=== PATIENT | male | born 1965 | race Hispanic/Latino ===

== ENCOUNTER 2017-08-05 11:51 | Emergency (ER) | payer MEDICARE, OTHER ==
[2017-08-05 12:46] LABS: Bilirubin,Urine NEG (Negative); Blood,Urine NEG (Negative); Color,Urine Yellow (Yellow); Mucus,Urine FEW /HPF; Urobilinogen,Urine < 2.0 mg/dL (<2.0)
[2017-08-05 12:56] LABS: Amphetamine Screen,Urine PRESUMPTIVE NEGATIVE; Benzodiazepines Screen,Urine PRESUMPTIVE NEGATIVE; Cannabinoid Screen,Urine PRESUMPTIVE NEGATIVE; Cocaine Screen,Urine PRESUMPTIVE NEGATIVE; Methadone Screen,Urine PRESUMPTIVE NEGATIVE; Opiate Screen,Urine PRESUMPTIVE NEGATIVE
[2017-08-05 13:48] LABS: Basophils % (Auto) 0.8 % (0.0-1.8); Eosinophils % (Auto) 0.6 % (0.0-4.3); Hemoglobin 14.1 gm/dl (11.8-15.2); Lymphocytes # (Auto) 1.1 K/mm3 (1.2-5.4); Mean Corpuscular HGB Conc 34 % (32-34); Mean Corpuscular Hemoglobin 29 pg (28-32); Mean Corpuscular Volume 87 fl (84-94); Monocytes # (Auto) 0.4 K/mm3 (0.0-0.8); Monocytes % (Auto) 7.3 % (0.0-7.3); Platelet Count 161 K/mm3 (140-440); Red Blood Count 4.86 M/mm3 (3.65-5.03); Red Cell Distribution Width 15.3 % (13.2-15.2)
--- NOTE | 2017-08-05 14:03 | Emergency Department Report ---
HPI - General Chief Complaint: Psych Time Seen by Provider: 08/05/17 12:32 - HPI HPI: The patient is a 52-year-old male who presents for evaluation of mental health. The patient reports experiencing constant and severe sadness and hopelessness for the past week, and command auditory hallucinations instructed him to harm himself. He shares that he has a long-standing history of depression. The patient denies fever, headache, unexplained weight loss or weight gain, heat or cold intolerance, skin, hair, or nail changes, neuro deficits, homicidal ideations, or visual hallucinations. ED Past Medical Hx - Past Medical History Hx Hypertension: Yes Hx Diabetes: Yes Hx Psychiatric Treatment: Yes - Social History Smoking Status: Light Tobacco Smoker - Medications Home Medications: Home Medications Medication Instructions Recorded Confirmed Last Taken Type Atenolol [Tenormin] 25 mg PO DAILY 08/05/17 08/05/17 Unknown History Divalproex ER [DepaKOTE ER] 500 mg PO QDAY 08/05/17 08/05/17 Unknown History Levothyroxine [Synthroid] 75 mcg PO QAM 08/05/17 08/05/17 Unknown History Omeprazole 20 mg PO QDAY 08/05/17 08/05/17 Unknown History QUEtiapine [SEROquel] 200 mg PO BID 08/05/17 08/05/17 Unknown History Ropinirole HCl [Requip] 0.25 mg PO QDAY 08/05/17 08/05/17 Unknown History metFORMIN [Glucophage] 1,000 mg PO BID 08/05/17 08/05/17 Unknown History ED Review of Systems ROS: Stated complaint: MH/1013 Other details as noted in HPI Constitutional: denies: fever ENT: denies: throat or neck pain Respiratory: denies: cough, shortness of breath Cardiovascular: denies: chest pain Endocrine: denies unexplained weight loss or gain Gastrointestinal: denies: abdominal pain, nausea Genitourinary: denies: dysuria Musculoskeletal: denies: leg swelling Skin: denies: rash Neurological: denies: headache Hematological/Lymphatic: denies: easy bleeding or easy bruising Psych: reports sadness or hopelessness Physical Exam - Physical Exam Vital Signs: Vital Signs 08/05/17 08/05/17 12:55 12:58 Temperature 98.3 F Pulse Rate 101 H Respiratory 16 16 Rate Blood Pressure 164/91 [Left] O2 Sat by Pulse 100 100 Oximetry Physical Exam: General: well-nourished, well-developed, no acute distress Head: Normocephalic, atraumatic Eyes: normal sclera ENT: Mucous membranes are pink and moist Neck: trachea midline, neck supple, No neck stiffness, no cervical adenopathy Respiratory: Breath sounds equal bilaterally, no wheezing, rales, or rhonchi Cardio: S1 and S2 present, no murmurs, rubs, gallops, capillary refill is brisk Abdomen: Normoactive bowel sounds, soft abdomen, no rigidity, no guarding or rebound tenderness Musc: No pitting edema Skin: No rash Neuro: no facial drooping, normal speech Psych: Flat affect, depressed mood, poor insight, positive suicidal ideation ED Course Vital Signs 08/05/17 08/05/17 12:55 12:58 Temperature 98.3 F Pulse Rate 101 H Respiratory 16 16 Rate Blood Pressure 164/91 [Left] O2 Sat by Pulse 100 100 Oximetry ED Medical Decision Making - Lab Data Result diagrams: 08/05/17 13:30 08/05/17 13:30 - Medical Decision Making The patient was seen and examined by myself. The patient is placed on a environmental monitoring technician and continuous pulse ox. On initial evaluation, the patient was found to be in no distress. Labs are obtained. Lab results are grossly unremarkable. The patient is medically clear. Mental health is consulted. Mental health evaluates the patient and agrees that the patient is at risk of harm to self. A 1013 is completed. The patient will be admitted to a psychiatric facility once bed placement is obtained. Critical care attestation.: If time is entered above; I have spent that time in minutes in the direct care of this critically ill patient, excluding procedure time. ED Disposition Clinical Impression: Suicidal ideation, Acute psychosis Disposition: [id number]/TX-[id number] PSY HOSP/PSY UNIT Is pt being admited?: No Does the pt Need Aspirin: No Condition: Stable Time of Disposition: 13:49
[2017-08-05 15:11] LABS: BUN/Creatinine Ratio 16; Blood Urea Nitrogen 18 mg/dL (9-20); Calcium 9.2 mg/dL (8.4-10.2); Hemolysis Index 3
[2017-08-05] MEDS ORDERED: TYLENOL PO PRN (18:18)
[2017-08-05] MEDS ORDERED: ALUM-MAG HYDROX-SIMETH 200-200-20MG/5ML PO PRN (18:18)
[2017-08-05] MEDS ORDERED: MILK OF MAGNESIA PO PRN (18:18)
[2017-08-05] MEDS ORDERED: GLUCOPHAGE PO ONE (22:40)
[2017-08-06] MEDS ORDERED: SYNTHROID PO SCH (06:00)
[2017-08-06] MEDS ORDERED: TENORMIN ONE (07:35)
[2017-08-06] MEDS: GLUCOPHAGE PO SCH ×2 (07:45→16:42)
[2017-08-06] MEDS ORDERED: TENORMIN PO SCH (10:00)
[2017-08-06 10:24] LABS: Alanine Aminotransferase 8 units/L (7-56); Lipase 39 units/L (13-60)
--- NOTE | 2017-08-06 11:15 | Consultation ---
History of Present Illness - Reason for Consult Consult date: 08/06/17 Reason for consult: Mental Health Evaluation Requesting physician: XAVIER CRUZ - Chief Complaint Chief complaint: "The voices" - History of Present Psychiatric Illness 52-year-old male who presents for evaluation of mental health because he endorses SI's and AH's. Today the patient is calm, but disorganized during the assessment. He stated that the voices were loud yesterday telling him to kill himself. He stated that he was trying to ignore them, but they were "overwhelming." He stated that the voices are still active. He stated that he has not been on his mediation (Seroquel and Depakote) for weeks. He stated that he does not have a psychiatrist for outpatient psy services. He denies HI's and VH's. He admitted to erratic sleep, but denies a poor appetite. He denies recreational drug use and alcohol consumption (etoh). Medications and Allergies Allergies Allergy/AdvReac Type Severity Reaction Status Date / Time codeine Allergy Unknown Verified 08/05/17 12:29 lorazepam [From Ativan] Allergy Unknown Verified 08/05/17 12:29 Home Medications Medication Instructions Recorded Confirmed Last Taken Type Atenolol [Tenormin] 25 mg PO DAILY 08/05/17 08/05/17 Unknown History Divalproex ER [DepaKOTE ER] 500 mg PO QDAY 08/05/17 08/05/17 Unknown History Levothyroxine [Synthroid] 75 mcg PO QAM 08/05/17 08/05/17 Unknown History Omeprazole 20 mg PO QDAY 08/05/17 08/05/17 Unknown History QUEtiapine [SEROquel] 200 mg PO BID 08/05/17 08/05/17 Unknown History Ropinirole HCl [Requip] 0.25 mg PO QDAY 08/05/17 08/05/17 Unknown History metFORMIN [Glucophage] 1,000 mg PO BID 08/05/17 08/05/17 Unknown History Active Meds: Active Medications Acetaminophen (Tylenol) 650 mg PO Q4HR PRN PRN Reason: Pain MILD(1-3)/Fever >100.5/PRIETO Al Hydrox/Mg Hydrox/Simethicone (Alum-Mag Hydrox-Simeth [id number]/5ml) 30 ml PO Q4HR PRN PRN Reason: Indigestion Atenolol (Tenormin) 25 mg PO DAILY [facility] Stop: 08/10/17 09:59 Last Admin: 08/06/17 09:53 Dose: 25 mg Levothyroxine Sodium (Synthroid) 75 mcg PO DAILY@0600 KRISTEL Stop: 08/10/17 05:59 Last Admin: 08/06/17 06:27 Dose: 75 mcg Magnesium Hydroxide (Milk Of Magnesia) 30 ml PO Q12HR PRN PRN Reason: Constipation Metformin HCl (Glucophage) 1,000 mg PO BIDDIAB KRISTEL Stop: 08/10/17 07:59 Last Admin: 08/06/17 07:45 Dose: 1,000 mg Past psychiatric history - Past Medical History Past Medical History: diabetes, hypertension Past Surgical History: No surgical history - past Psychiatric treatment and history psychiatric treatment history: Multiple inpatient psy settings. Denies a fam psy hx. - Social History Social history: other (Reside at a intermediate) Mental Status Exam - Vital signs Last Vital Signs Temp 98.3 F 08/06/17 01:33 Pulse 97 H 08/06/17 01:33 Resp 18 08/06/17 01:33 BP 133/68 08/06/17 01:33 Pulse Ox 98 08/06/17 01:33 - Exam Narrative exam: MSE: Appearance: calm, cooperative Behavior: regular eye contact Speech: regular rate and tone Mood: "okay" Affect: congruent to mood Thought Process: disorganized Thought Content: denies HI's and VH's, intermittent AH's, cannot confirm or deny SI's Motor Activity: sitting up in bed Cognition: A/O x 3 Insight: poor Judgment: variable Results Result Diagrams: 08/05/17 13:30 08/05/17 13:30 Abnormal lab results 08/05/17 08/05/17 08/05/17 Range/Units 13:30 13:30 13:30 RDW (13.2-15.2) % Lymph # (1.2-5.4) K/mm3 Seg Neutrophils % (40.0-70.0) % Glucose 217 H (75-100) mg/dL Salicylates < 0.3 L (2.8-20.0) mg/dL Acetaminophen < 5.0 L (10.0-30.0) ug/mL Valproic Acid (50-100) ug/mL 08/05/17 08/06/17 Range/Units 13:30 09:33 RDW 15.3 H (13.2-15.2) % Lymph # 1.1 L (1.2-5.4) K/mm3 Seg Neutrophils % 73.3 H (40.0-70.0) % Glucose (75-100) mg/dL Salicylates (2.8-20.0) mg/dL Acetaminophen (10.0-30.0) ug/mL Valproic Acid 3.7 L (50-100) ug/mL All other labs normal. Assessment and Plan Assessment and plan: Impression: Unspecified Psychosis/Mood DO. Today the patient is calm, but disorganized during the assessment. The patient cannot confirm or deny SI's. UDS negative. DDx: R/O Bipolar DO, Schizoaffective DO, R/O MDD with psychosis Recommendation/Plan: Continue 1013 with placement to inpatient psy services. Start Seroquel 200 mg PO HS for mood/psychosis and Depakote 500 mg PO BID for mood. Discussed the possible metabolic side effects of Seroquel with the patient.
[2017-08-06 14:41] VITALS: BP 123/77
== END 2017-08-07 03:30 ==
LOC: EEVIPCON 11:51 → ED 11:51
DX: F23 Brief psychotic disorder (principal); F32.9 Major depressive disorder, single episode, unspecified; I10 Essential (primary) hypertension; E11.9 Type 2 diabetes mellitus without complications; F17.200 Nicotine dependence, unspecified, uncomplicated; Z88.5 Allergy status to narcotic agent; Z88.8 Allergy status to other drugs, medicaments and biological substances; Z79.899 Other long term (current) drug therapy
CPT/HCPCS: 36415; 80048; 80164; 80307; 81001; 82150; 82962; 83690; 84075; 84450; 84460; 85025; 99285; G0480; 80320

== ENCOUNTER 2017-11-08 13:07 | Emergency (ER) | payer MEDICARE ==
--- NOTE | 2017-11-08 14:38 | Emergency Department Report ---
ED Fall HPI - General Chief Complaint: Extremity Injury, Upper Stated Complaint: FALL Time Seen by Provider: 11/08/17 13:45 Source: patient Mode of arrival: Ambulatory - History of Present Illness Complaint: fall -: days(s) (5 days) Fall From: standing When Fall Occurred: # days [employer] (5) Fall Witnessed: no Loss of Consciousness: none Prolonged Down Time?: no Symptoms Prior to Fall: none Location: chest Location - Extremities: Right: Shoulder Severity scale (0 -10): 5 Quality: sharp Associated Symptoms: denies - Related Data Home Medications Medication Instructions Recorded Confirmed Last Taken Atenolol [Tenormin] 25 mg PO DAILY 08/05/17 08/05/17 Unknown Divalproex ER [DepaKOTE ER] 500 mg PO QDAY 08/05/17 08/05/17 Unknown Levothyroxine [Synthroid] 75 mcg PO QAM 08/05/17 08/05/17 Unknown Omeprazole 20 mg PO QDAY 08/05/17 08/05/17 Unknown QUEtiapine [SEROquel] 200 mg PO BID 08/05/17 08/05/17 Unknown Ropinirole HCl [Requip] 0.25 mg PO QDAY 08/05/17 08/05/17 Unknown metFORMIN [Glucophage] 1,000 mg PO BID 08/05/17 08/05/17 Unknown Allergies Allergy/AdvReac Type Severity Reaction Status Date / Time codeine Allergy Unknown Verified 08/05/17 12:29 lorazepam [From Ativan] Allergy Unknown Verified 08/05/17 12:29 ED Review of Systems ROS: Stated complaint: FALL Other details as noted in HPI Comment: All other systems reviewed and negative Constitutional: denies: chills, fever Respiratory: denies: cough, orthopnea, shortness of breath, SOB with exertion, wheezing Cardiovascular: denies: chest pain, palpitations Gastrointestinal: denies: abdominal pain, nausea, vomiting Musculoskeletal: denies: back pain Neurological: denies: headache, weakness ED Past Medical Hx - Past Medical History Hx Hypertension: Yes Hx Diabetes: Yes Hx Psychiatric Treatment: Yes - Social History Smoking Status: Heavy Tobacco Smoker - Medications Home Medications: Home Medications Medication Instructions Recorded Confirmed Last Taken Type Atenolol [Tenormin] 25 mg PO DAILY 08/05/17 08/05/17 Unknown History Divalproex ER [DepaKOTE ER] 500 mg PO QDAY 08/05/17 08/05/17 Unknown History Levothyroxine [Synthroid] 75 mcg PO QAM 08/05/17 08/05/17 Unknown History Omeprazole 20 mg PO QDAY 08/05/17 08/05/17 Unknown History QUEtiapine [SEROquel] 200 mg PO BID 08/05/17 08/05/17 Unknown History Ropinirole HCl [Requip] 0.25 mg PO QDAY 08/05/17 08/05/17 Unknown History metFORMIN [Glucophage] 1,000 mg PO BID 08/05/17 08/05/17 Unknown History ED Physical Exam - General Limitations: No Limitations General appearance: alert, in no apparent distress - Head Head exam: Present: atraumatic, normocephalic, normal inspection - Eye Eye exam: Present: normal appearance - ENT ENT exam: Present: normal exam, normal orophraynx, mucous membranes moist - Respiratory Respiratory exam: Present: normal lung sounds bilaterally, chest wall tenderness (right lower posterior chest) - Cardiovascular Cardiovascular Exam: Present: regular rate, normal rhythm, normal heart sounds - GI/Abdominal GI/Abdominal exam: Present: soft, normal bowel sounds. Absent: distended, tenderness, guarding, rebound, rigid, mass, bruit, pulsatile mass, hernia - Back Exam Back exam: Present: normal inspection, full ROM. Absent: tenderness, CVA tenderness (R), CVA tenderness (L), paraspinal tenderness, vertebral tenderness - Neurological Exam Neurological exam: Present: alert, oriented X3, CN II-XII intact, normal gait, reflexes normal - Skin Skin exam: Present: warm, intact, normal color ED Course Vital Signs 11/08/17 13:12 Temperature 98.6 F Pulse Rate 85 Respiratory 16 Rate Blood Pressure 103/66 O2 Sat by Pulse 98 Oximetry ED Medical Decision Making - Radiology Data Radiology results: report reviewed Right shoulder and right rib detail x-ray is unremarkable Critical care attestation.: If time is entered above; I have spent that time in minutes in the direct care of this critically ill patient, excluding procedure time. ED Disposition Clinical Impression: Fall, Sprain of shoulder, right, Rib injury Disposition: - TO HOME OR SELFCARE Is pt being admited?: No Condition: Stable Instructions: Shoulder Sprain (ED), Contusion in Adults (ED) Referrals: PRIMARY CARE, [Primary Care Provider] - 3-5 Days
--- NOTE | 2017-11-08 15:13 | XRay Report ---
RIGHT SHOULDER, 3 VIEWS: HISTORY: right shoulder pain. Normal bone mineralization. No acute osseous injury or joint pathology is detected. The soft tissues are unremarkable. IMPRESSION: Right shoulder within normal limits.
--- NOTE | 2017-11-08 15:13 | XRay Report ---
RIGHT RIBS, 3 VIEWS: History: pain. Routine views of the rib cage demonstrate normal mineralization with no significant contour abnormalities, fractures or destructive lesions. PA view of the chest demonstrates no underlying cardiopulmonary abnormalities, fluid or pneumothorax. IMPRESSION: Unremarkable right rib series.
[2017-11-08 15:32] VITALS: BP 136/66
== END 2017-11-08 15:29 | disposition home or self-care (01) ==
LOC: ED 13:07
DX: S43.401A Unspecified sprain of right shoulder joint, initial encounter (principal); S29.9XXA Unspecified injury of thorax, initial encounter; I10 Essential (primary) hypertension; E11.9 Type 2 diabetes mellitus without complications; F17.210 Nicotine dependence, cigarettes, uncomplicated; Z88.6 Allergy status to analgesic agent; Z88.8 Allergy status to other drugs, medicaments and biological substances; W18.30XA Fall on same level, unspecified, initial encounter; Y93.89 Activity, other specified; Y92.89 Other specified places as the place of occurrence of the external cause; Y99.8 Other external cause status
CPT/HCPCS: 99283